=== PATIENT | female | born 1945 | race Caucasian/White ===

== ENCOUNTER 2020-04-24 09:02 | Outpatient (REF) | payer MEDICARE, OTHER, SELFPAY ==
[2020-04-24 11:13] LABS: Hematocrit 41.3 % (37-47); Hemoglobin 13.7 g/dl (12.0-16.0); Mean Corpuscular HGB Conc 33.2 g/dl (31.0-35.0); Mean Corpuscular Hemoglobin 31.8 pg (27.0-33.0); Mean Corpuscular Volume 95.8 fL (80-98); Platelet Count 221 X10*3/uL (160-400); Red Blood Count 4.31 X10*6/uL (4.20-5.50); Red Cell Distribution Width 12.2 % (11.0-16.0); White Blood Count 5.3 X10*3/uL (4.8-10.8)
[2020-04-24 11:50] LABS: Alanine Aminotransferase 23 U/L (0-31); Albumin Level 4.6 g/dL (3.5-5.0); Alkaline Phosphatase 94 U/L (39-117); Anion Gap 12 (12-20); Aspartate Amino Transferase 26 U/L (5-31); Bilirubin Total 0.6 mg/dL (0.0-1.0); Blood Urea Nitrogen 17 mg/dL (9-16); Calcium 9.1 mg/dL (8.4-10.2); Carbon Dioxide 28 mmol/L (22-29); Chloride 102 mmol/L (96-108); Cholesterol 208 mg/dL; Estimated Glomerular Filt Rate > 60; Glucose Fasting 92 mg/dL (60-99); HDL Cholesterol 86 mg/dL; LDL Cholesterol Calculated 111 mg/dl; Potassium 4.3 mmol/l (3.3-5.1); Sodium 138 mmol/L (135-145); Total Protein 6.9 g/dL (6.5-8.0); Triglycerides 59 mg/dL
[2020-04-24 11:52] LABS: Thyroid Stimulating Hormone 0.98 uIU/mL (0.32-4.0)
== END 2020-04-24 09:03 | disposition home or self-care (01) ==
LOC: HO.HMGCLDS 09:02
PROVIDERS: PCP Internal Medicine; Visit Provider Internal Medicine
DX: Z00.00 Encounter for general adult medical examination without abnormal findings (principal); Z13.220 Encounter for screening for lipoid disorders; Z13.29 Encounter for screening for other suspected endocrine disorder
CPT/HCPCS: 36415; 80053; 80061; 84443; 85027

== ENCOUNTER 2020-06-17 12:32 | Outpatient (REF) | payer MEDICARE, OTHER, SELFPAY ==
--- NOTE | ~2020-06-17 | XR_ITS ---
EXAMINATION: XR CHEST CLINICAL INFORMATION: Z00.00 - Encounter for general adult medical examination COMPARISON: None TECHNIQUE: 2 views of the chest were obtained. FINDINGS: There is mild upper zone hyperinflation with prominent retrosternal airspace in AP diameter on lateral view. The lungs are clear. There is no airspace consolidation or groundglass opacity. No pleural reaction or effusion. The costophrenic sulci are well-defined. The heart is normal in size. The hilar and mediastinal contours are normal. There are multilevel degenerative changes and mild curvature thoracic spine. XR/XR chest 2V IMPRESSION: 1. Hyperinflation. Lungs clear. Heart size normal. 2. Multilevel degenerative changes thoracic spine.
== END 2020-06-17 12:33 | disposition home or self-care (01) ==
LOC: HO.HMGCX 12:32
PROVIDERS: PCP Internal Medicine; Visit Provider Internal Medicine
DX: R05 Cough (principal)
CPT/HCPCS: 71046

== ENCOUNTER 2020-06-23 09:15 | Outpatient (REF) | payer MEDICARE, OTHER, SELFPAY ==
--- NOTE | ~2020-06-23 | MM_ITS ---
EXAMINATION: BONE DENSITOMETRY CLINICAL INDICATION: Screening for osteoporosis. COMPARISON: Previous BD dated 07/05/2018 and baseline BD dated 05/20/2016. TECHNIQUE: Using a [employer] DXA System (software version: 13.1) manufactured by [employer], dual-energy x-ray absorptiometry was performed of the lumbar spine and left hip. The images are of good technical quality. Summary results are attached. FINDINGS: AP SPINE L1-L2 (excluding L3 and L4): The data of L1-L4 has been changed to exclude the L3 and L4 vertebral bodies, because at these levels may cause overestimation of lumbar spine density. Current: BMD 1.040 g/cm2, Z-score 1.2, T-score -1.0, normal, 2.7% decrease from previous, 4.5% decrease from baseline (<5% change is not significant). Prior: BMD 1.069 g/cm2. Baseline: BMD 1.089 g/cm2. LEFT FEMUR, NECK: Current: BMD 0.792 g/cm2, Z-score 0.5, T-score -1.8, osteopenia. Prior: BMD 0.839 g/cm2. Baseline: BMD 0.861 g/cm2. LEFT FEMUR, TOTAL: Current: BMD 0.886 g/cm2, Z-score 1.1, T-score -1.0, normal, 4.3% decrease from previous, 7.3% decrease from baseline (<5% change is not significant). Prior: BMD 0.926 g/cm2. Baseline: BMD 0.956 g/cm2. IDENTIFIED RISK FACTORS: Height loss, low calcium intake, menopause. HISTORY OF FRACTURE: None listed. MEDICATIONS: Calcium supplements or multivitamin, vitamin D. MM/XR DEXA axial skeleton IMPRESSION: 1. DIAGNOSIS: Osteopenia based on the lowest T-score value of -1.8 in the femoral neck applying World Health Organization criteria. 2. 10-YEAR FRACTURE RISK PREDICTION, FRAX: Major osteoporotic fracture (clinical spine, forearm, hip or shoulder) 11.1%. Hip fracture 2.8%. 3. Treatment Recommendations: NOF guidelines recommend consideration for treatment in postmenopausal women and men age 50 and older presenting with the following: -A hip or vertebral (clinical or morphometric) fracture. -T-score less than or equal to -2.5 at the femoral neck or spine after appropriate evaluation to exclude secondary causes. -Low bone mass at the hip or spine and a 10-year fracture probability by FRAX of greater than or equal to 3% for hip fracture or greater than or equal to 20% for major osteoporotic fracture based on the [place] adapted WHO algorithm. 4. Other Recommendations: All treatment decisions require clinical judgment and consideration of individual patient factors, including patient preferences, comorbidities, previous drug use, risk factors not captured in the FRAX model (e.g. frailty, falls, vitamin D deficiency, increased bone turnover, interval significant decline in bone density) and possible under or overestimation of fracture risk by FRAX. Additional medical evaluation for secondary cause of low bone mineral density may be appropriate. FUTURE SCAN RECOMMENDATION: People with diagnosed cases of osteoporosis or at high risk for fracture should have regular bone mineral density tests. For patients eligible for Medicare, routine testing is allowed once every 2 years. The testing frequency can be increased to one year for patients who have rapidly progressing disease, those who are receiving or discontinuing medical therapy to restore bone mass, or have additional risk factors.
== END 2020-06-23 09:16 | disposition home or self-care (01) ==
LOC: HO.MAMMO 09:15
PROVIDERS: PCP Internal Medicine; Visit Provider Internal Medicine
DX: Z13.820 Encounter for screening for osteoporosis (principal); E58 Dietary calcium deficiency; Z78.0 Asymptomatic menopausal state
CPT/HCPCS: 77080

== ENCOUNTER 2021-06-21 09:04 | Outpatient (REF) | payer MEDICARE, OTHER, SELFPAY ==
--- NOTE | ~2021-06-21 | XR_ITS ---
EXAMINATION: XR LUMBOSACRAL SPINE CLINICAL INFORMATION: Pain. COMPARISON: Previous lumbar spine MRI from 2017. TECHNIQUE: Three views of the lumbosacral spine. FINDINGS: There is 1.5 cm anterior subluxation of L4 with respect L5. There is a 5 mm anterior subluxation of L5 with respect to S1. This is similar to previous MRI. There is mild curvature of the lower lumbosacral spine to the right. Bone alignment is otherwise normal. There is degenerative disc disease at L4-L5 and L5-S1. There is lower lumbar spine facet arthritis. There is a probable old L4 pars defect. XR/XR lumbar spine 2-3V IMPRESSION: Degenerative changes of the lower lumbar spine and L4-L5 spondylolysis and spondylolisthesis similar to previous MRI.
--- NOTE | ~2021-06-21 | XR_ITS ---
EXAMINATION: XR BILATERAL HIPS WITH AP PELVIS CLINICAL INFORMATION: Right hip pain COMPARISON: Previous x-ray April 2016 TECHNIQUE: AP view of the pelvis and 2 views of each hip were obtained. FINDINGS: There is severe right hip arthritis with joint space narrowing, osteophyte formation and subchondral cyst formation. There is mild left hip arthritis with mild joint space narrowing and osteophyte formation. No fracture or dislocation is seen. The bones of the pelvis are unremarkable. Soft tissues are unremarkable. XR/XR hip BI w PEL1V IMPRESSION: Bilateral hip arthritis, severe on the right.
[2021-06-21 11:41] LABS: Hematocrit 40.9 % (37.0-47.0); Hemoglobin 13.3 g/dl (12.0-16.0); Mean Corpuscular HGB Conc 32.5 g/dl (31.0-35.0); Mean Corpuscular Hemoglobin 30.4 pg (27.0-33.0); Mean Corpuscular Volume 93.4 fL (80.0-98.0); Mean Platelet Volume 10.9 fL (9.4-12.3); Platelet Count 231 X10*3/uL (160-400); Red Blood Count 4.38 X10*6/uL (4.20-5.50); Red Cell Distribution Width 12.1 % (11.0-16.0); White Blood Count 4.9 X10*3/uL (4.8-10.8)
[2021-06-21 12:08] LABS: Alanine Aminotransferase 24 U/L (0-31); Albumin Level 4.3 g/dL (3.5-5.0); Alkaline Phosphatase 95 U/L (39-117); Anion Gap 10 (12-20); Aspartate Amino Transferase 27 U/L (5-31); Bilirubin Total 0.8 mg/dL (0.0-1.0); Blood Urea Nitrogen 17 mg/dL (9-16); Calcium 9.5 mg/dL (8.4-10.2); Carbon Dioxide 28 mmol/L (22-29); Chloride 104 mmol/L (96-108); Cholesterol 199 mg/dL; Estimated Glomerular Filt Rate > 60; Glucose Fasting 87 mg/dL (60-99); HDL Cholesterol 78 mg/dL; LDL Cholesterol Calculated 109 mg/dl; Potassium 4.2 mmol/L (3.3-5.1); Sodium 138 mmol/L (135-145); Total Protein 6.7 g/dL (6.5-8.0); Triglycerides 60 mg/dL
[2021-06-21 12:12] LABS: TSH reflex Free T4 0.82 uIU/mL (0.32-4.0); Vitamin D 25-OH Total 29.4 ng/mL (>30)
== END 2021-06-21 09:05 | disposition home or self-care (01) ==
LOC: HO.HMGCX 09:04
PROVIDERS: PCP Internal Medicine; Visit Provider Internal Medicine
DX: Z00.00 Encounter for general adult medical examination without abnormal findings (principal); M25.551 Pain in right hip; M54.30 Sciatica, unspecified side; R93.3 Abnormal findings on diagnostic imaging of other parts of digestive tract; M85.80 Other specified disorders of bone density and structure, unspecified site
CPT/HCPCS: 36415; 72100; 73521; 80053; 80061; 82306; 84443; 85027

== ENCOUNTER 2021-08-03 14:00 | Outpatient (RCR) | payer MEDICARE, OTHER, SELFPAY ==
--- NOTE | 2021-07-06 14:41 | MHC.PT.EP ---
[facility] [place] Office [place] Office [place] Office [address] [phone] F: [phone] F: [phone] F: [phone] F: [phone] Physical Therapy Plan of Care Date of Evaluation: Date of Surgery: Diagnosis: R hip pain Assessment: Patient is a 75 year old R handed female who presents with s/s consistent with R hip pain. She likes to stay active and is in a hiking group. Patient past medical history is non-contributory. Current impairments include pain, ROM, strength, activity tolerance and functional mobility. Functional limitations include decreased ability to stand, transfer, hike, walk longer distances. Patient is motivated with good rehab potential. Skilled PT will address impairments and functional limitations in order to achieve goals. Frequency and Duration: The patient will be seen 1x/week for 6 weeks Short Term Goals: I with HEP - 3 weeks ER 32 AROM - 3 weeks Able to walk pain free with symmetrical gait - 3 weeks [employer] Goals: Pain free hiking > 5 hours - 6 weeks Pain free transfers - 6 weeks Hip strength 4+/5 grossly - 6 weeks ROM symmetrical - 6 weeks Treatment Plan: Modalities to reduce pain, spasms and effusion. Manual therapy to restore motion and function. Therapeutic exercise to improve strength and flexibility. Neuromuscular re-education for posture and balance. Therapeutic activities to return to functional activities of daily living. Electronically signed by: Arpan Hendricks, PT Please sign and return to therapist. Thank you for your referral.
--- NOTE | 2022-01-06 09:37 | MHC.PT.DC ---
[facility] [place] Office [place] Office [address] Barron Baron [address] [phone] F: [phone] F: [phone] F: [phone] F: [phone] Physical Therapy Discharge Report Diagnosis: R hip pain Date of Surgery: Date of Evaluation: 07/06/21 Date of Discharge: 08/19/21 Treatments to Date: 5 Cancellations to Date: No Shows to Date: Discharge Status: Improved Function Independent with HEP Discharge Summary: 08/03/21: pt progressed well over the course of PT on impairments and understanding of importance of HEP in order to slow progression of hip pathology. we are in agreement to d/c to HEP at this time. 07/28/21: pt progressed with LE strength. issued updated HEP. we will continue 1 more visit then likely d/c to HEP as pt is I with program at this time. 07/20/21: pt progressing well overall. able to perform 5 mile hike which was about 3 hours. we will continue to assess progress. some pain with standing hip abd with RTB. 07/13/21: pt progressed with skilled PT for hip strength and ROM/flex. no adverse reactions. HEP updated. Patient is a 75 year old R handed female who presents with s/s consistent with R hip pain. She likes to stay active and is in a hiking group. Patient past medical history is non-contributory. Current impairments include pain, ROM, strength, activity tolerance and functional mobility. Functional limitations include decreased ability to stand, transfer, hike, walk longer distances. Patient is motivated with good rehab potential. Skilled PT will address impairments and functional limitations in order to achieve goals. Electronically signed by: Arpan Hendricks, PT Please sign and return to therapist. Thank you for your referral.
== END 2022-01-06 09:37 | disposition home or self-care (01) ==
LOC: HO.PTCHIC 14:00
PROVIDERS: PCP Internal Medicine; Visit Provider Internal Medicine
DX: M25.551 Pain in right hip (principal)
CPT/HCPCS: 97110; 97140; 97161

== ENCOUNTER 2022-06-29 08:34 | Outpatient (REF) | payer MEDICARE, OTHER, SELFPAY ==
[2022-06-29 11:22] LABS: MANUAL DIFF FLAG NO
[2022-06-29 11:39] LABS: Estimated Average Glucose 114 mg/dL; Hemoglobin A1c % 5.6 %
[2022-06-29 11:45] LABS: Basophils Percent Auto 0.9 % (0-2); Eosinophils Absolute Auto 0.1 X10*3/uL (0.0-0.4); Hematocrit 42.2 % (37.0-47.0); Hemoglobin 13.8 g/dl (12.0-16.0); Imm Gran Abs Auto 0.01 X10*3/uL (0.00-0.03); Imm Gran Pct Auto 0.2 % (0.0-0.4); Lymphocytes Absolute Auto 1.5 X10*3/uL (1.2-4.9); Lymphocytes Percent Auto 32.5 % (20-40); Mean Corpuscular HGB Conc 32.7 g/dl (31.0-35.0); Mean Corpuscular Hemoglobin 29.8 pg (27.0-33.0); Mean Corpuscular Volume 91.1 fL (80.0-98.0); Monocytes Absolute Auto 0.4 X10*3/uL (0.1-1.2); Monocytes Percent Auto 9.6 % (2-11); Neutrophils Absolute Auto 2.5 x10*3/uL (2.0-8.3); Neutrophils Percent Auto 54.8 % (45-73); Platelet Count 199 X10*3/uL (160-400); Red Blood Count 4.63 X10*6/uL (4.20-5.50); Red Cell Distribution Width 12.1 % (11.0-16.0); White Blood Count 4.5 X10*3/uL (4.8-10.8)
[2022-06-29 12:01] LABS: Alanine Aminotransferase 21 U/L (0-31); Albumin Level 4.3 g/dL (3.5-5.0); Alkaline Phosphatase 99 U/L (39-117); Anion Gap 11 (12-20); Aspartate Amino Transferase 26 U/L (5-31); Blood Urea Nitrogen 17 mg/dL (9-16); Calcium 9.2 mg/dL (8.4-10.2); Carbon Dioxide 27 mmol/L (22-29); Chloride 106 mmol/L (96-108); Cholesterol 221 mg/dL; Estimated Glomerular Filt Rate > 60; Glucose Fasting 83 mg/dL (60-99); HDL Cholesterol 80 mg/dL; LDL Cholesterol Calculated 126 mg/dl; Potassium 4.2 mmol/L (3.3-5.1); Sodium 140 mmol/L (135-145); Total Protein 6.5 g/dL (6.5-8.0); Triglycerides 76 mg/dL
[2022-06-29 12:07] LABS: TSH reflex Free T4 0.95 uIU/mL (0.32-4.0); Vitamin D 25-OH Total 47.1 ng/mL (>30)
== END 2022-06-29 08:35 | disposition home or self-care (01) ==
LOC: HO.HMGCLDS 08:34
PROVIDERS: PCP Internal Medicine; Visit Provider Internal Medicine
DX: Z00.00 Encounter for general adult medical examination without abnormal findings (principal); H26.9 Unspecified cataract; E55.9 Vitamin D deficiency, unspecified
CPT/HCPCS: 36415; 80053; 80061; 82306; 83036; 84443; 85025

== ENCOUNTER 2022-11-30 14:15 | Outpatient (AMB) | payer MEDICARE, OTHER, SELFPAY ==
[2022-11-30 14:20] VITALS: BP 104/66; PULSE 77; O2SAT 98; BMI 20.7
--- NOTE | 2022-11-30 14:20 | A.OFFPC_ITS ---
Vital Signs 11/30/22 14:20 Height 5 ft 2 in Weight 113 lb BMI 20.7 BP 104/66 Blood Pressure Location Lt brachial Position Sitting Pulse 77 Pulse Source Pulse Oximeter Pulse Oximetry (%) 98 Oxygen Delivery Method Room Air Intake Visit Reasons: hip and back pain Intake Note: Pt is here today for a sick visit. Pt c/o L hip pain and L lower back pain. Allergies penicillin V Allergy (Intermediate, Verified 11/30/22 14:22) Hives Penicillins Allergy (Intermediate, Verified 11/30/22 14:22) Hives Tobacco use date assessed: 11/30/22 Dental Screening Dental Screen Date: 11/30/22 Did you have a dental visit in the last 12 months?: Yes Did you have a dental problem in the last 6 months where you did not have access to dental care?: No Was dental information given to patient?: Patient has dentist HPI hip and back pain HPI Details Pt c/o left-sided lower back and L hip pain worse when walking but also at night on and off for 3 months. Patient has been taking Tylenol almost on daily basis.. She has similar symptoms before was diagnosed with advanced o steoarthritis of the right hip. [facility] Medical History (Updated 11/30/22 @ 14:45 by Josette Falk MD) Abnormal colonoscopy Annual physical exam Cough GERD (gastroesophageal reflux disease) Mammogram normal Osteopenia Right hip pain Sciatica Surgical History No pertinent past surgical history Family History Father Type 2 diabetes mellitus Mother Hypertension Maternal Grandmother Bone cancer Social History Housing: House Alcohol intake: current Alcohol intake frequency: a few times a week Patient Tobacco Use Status: Former Tobacco user Quit Date: 1977 e-Cigarette/Vaping Use: Never Used Current occupational status: retired Cognitive needs: No Hearing needs: No Vision needs: Yes Questionnaire Thrive Questionnaire Date Thrive assessed: 06/24/22 APARNA-7 AMB Questionnaire APARNA-7 Date APARNA - 7 assessed: 06/24/22 Source: Developed by Drs. Ba Womack, Alize Gottlieb, Faizan Mathews and colleagues, with an educational amanda from [employer]. Review of Systems Const All systems reviewed & are unremarkable except as noted in HPI and below Reports no additional complaints Eyes Reports no additional complaints ENT Reports no additional complaints Card Reports no additional complaints GI Reports no additional complaints Reports no additional complaints Physical exam (Primary Care) Vital Signs: Last Vital Signs Pulse 77 11/30/22 14:20 BP 104/66 11/30/22 14:20 Pulse Ox 98 11/30/22 14:20 Oxygen Delivery Method Room Air 11/30/22 14:20 BMI result Body Mass Index 20.7 Tobacco/Smoking Status: Tobacco use Status Tobacco use date assessed 11/30/22 11/30/22 14:24 Patient Tobacco Use Status Former Tobacco user 11/30/22 14:24 e-Cigarette/Vaping Use Never Used 11/30/22 14:24 Thrive Assessment: Date of Thrive Assessment Date Thrive assessed 06/24/22 11/30/22 14:24 Const General: no acute distress Eyes General: appearance normal, both eyes and all related structures Resp Effort & Inspection: normal respiratory effort Auscultation: clear to auscultation bilaterally Cardio Rhythm: regular rhythm Heart sounds: S1 normal heart sound present and S2 normal heart sound present GI Inspection: Yes normal to inspection Extrem Other: Decreased range of motion of the left hip, straight leg rising 90 degrees bilaterally General: Yes no clubbing, cyanosis or edema Assessment and Plan Assessment & Plan (1) Right hip pain: Comment: s/p replacement 04/07 Code(s): M25.551 - Pain in right hip (2) Hip pain, left: Code(s): M25.552 - Pain in left hip Plan: Check x-ray of left hip. Orders: Orders 2 XR hip LT min 2V Today M25.552 - Pain in left hip Coding Level of Care Code Est Pt Level 3 (69676) Diagnoses Right hip pain M25.551 Hip pain, left M25.552
== END 2022-11-30 14:52 | disposition home or self-care (01) ==
PROVIDERS: PCP Internal Medicine; Visit Provider Internal Medicine
DX: M25.551 Pain in right hip (principal); M25.552 Pain in left hip
CPT/HCPCS: 99213

== ENCOUNTER 2022-11-30 14:47 | Outpatient (REF) | payer MEDICARE, OTHER, SELFPAY ==
--- NOTE | ~2022-11-30 | XR_ITS ---
EXAMINATION: XR HIP, LEFT CLINICAL INFORMATION: Pain. COMPARISON: Radiograph pelvis 06/21/2021. TECHNIQUE: Two views of the left hip. FINDINGS: No acute fractures or subluxation. Moderate joint space narrowing and subcortical sclerosis with small marginal osteophytes in the left hip, slightly increased compared to 06/21/2021. No significant soft tissue abnormality. XR/XR hip LT min 2V IMPRESSION: 1. No acute fractures or subluxation. 2. Moderate osteoarthritis of the left hip, slightly increased compared to 06/21/2021.
== END 2022-11-30 14:48 | disposition home or self-care (01) ==
LOC: HO.HMGCX 14:47
PROVIDERS: PCP Internal Medicine; Visit Provider Internal Medicine
DX: M25.552 Pain in left hip (principal)
CPT/HCPCS: 73502

== ENCOUNTER 2024-04-01 12:58 | Outpatient (REF) | payer MEDICARE, OTHER, SELFPAY | END 2024-04-01 12:59 | disposition home or self-care (01) | LOC: HO.HMGCX 12:58 | PROVIDERS: PCP Internal Medicine; Visit Provider Internal Medicine | DX: M25.552 Pain in left hip (principal) | CPT/HCPCS: 73502 ==

== ENCOUNTER 2024-05-09 08:46 | Outpatient (REF) | payer MEDICARE, OTHER, SELFPAY ==
[2024-05-09 10:13] LABS: MANUAL DIFF FLAG NO
[2024-05-09 10:27] LABS: Basophils Percent Auto 0.6 % (0-2); Eosinophils Absolute Auto 0.2 X10*3/uL (0.0-0.4); Eosinophils Percent Auto 3.8 % (0-4); Hematocrit 41.4 % (37.0-47.0); Hemoglobin 13.9 g/dl (12.0-16.0); Lymphocytes Absolute Auto 1.8 X10*3/uL (1.2-4.9); Mean Corpuscular HGB Conc 33.6 g/dl (31.0-35.0); Mean Corpuscular Hemoglobin 31.2 pg (27.0-33.0); Mean Corpuscular Volume 92.8 fL (80.0-98.0); Mean Platelet Volume 10.3 fL (9.4-12.3); Monocytes Absolute Auto 0.6 X10*3/uL (0.1-1.2); Monocytes Percent Auto 11.5 % (2-11); Neutrophils Absolute Auto 2.3 x10*3/uL (2.0-8.3); Neutrophils Percent Auto 47.1 % (45-73); Platelet Count 221 X10*3/uL (160-400); Red Blood Count 4.46 X10*6/uL (4.20-5.50); White Blood Count 4.8 X10*3/uL (4.8-10.8)
[2024-05-09 10:56] LABS: Alanine Aminotransferase 33 U/L (0-31); Albumin Level 4.2 g/dL (3.5-5.0); Alkaline Phosphatase 93 U/L (39-117); Anion Gap 10 (12-20); Aspartate Amino Transferase 35 U/L (5-31); Bilirubin Total 0.8 mg/dL (0.0-1.0); Blood Urea Nitrogen 16 mg/dL (9-16); Calcium 9.6 mg/dL (8.4-10.2); Carbon Dioxide 26 mmol/L (22-29); Chloride 108 mmol/L (96-108); Cholesterol 198 mg/dL (<200); Estimated Glomerular Filt Rate > 60; Glucose Fasting 89 mg/dL (60-99); HDL Cholesterol 75 mg/dL (>40); LDL Cholesterol Calculated 110 mg/dL (<100); Potassium 4.1 mmol/L (3.3-5.1); Sodium 140 mmol/L (135-145); Triglycerides 65 mg/dL (<150); Vitamin D 25-OH Total 55.7 ng/mL (>30)
== END 2024-05-09 08:47 | disposition home or self-care (01) ==
LOC: HO.HMGCLDS 08:46
PROVIDERS: PCP Internal Medicine; Visit Provider Internal Medicine
DX: Z00.00 Encounter for general adult medical examination without abnormal findings (principal); E55.9 Vitamin D deficiency, unspecified
CPT/HCPCS: 36415; 80053; 80061; 82306; 85025

== ENCOUNTER 2024-05-14 11:50 | Outpatient (AMB) | payer MEDICARE, OTHER, SELFPAY ==
[2024-05-14 11:55] VITALS: BP 110/76; PULSE 82; TEMP 36.4; O2SAT 99; BMI 20.1
--- NOTE | 2024-05-14 11:55 | A.OFFPC_ITS ---
Vital Signs 05/14/24 11:55 Height 5 ft 2 in Weight 110 lb BMI 20.1 BP 110/76 Blood Pressure Location Lt brachial Position Sitting Pulse 82 Pulse Source Pulse Oximeter Temp 97.6 F Temp Source Oral Pulse Oximetry (%) 99 Oxygen Delivery Method Room Air Intake Visit Reasons: Annual PE Intake Note: Pt is here today for PE. Allergies penicillin V Allergy (Intermediate, Verified 05/14/24 11:56) Hives Penicillins Allergy (Intermediate, Verified 05/14/24 11:56) Hives Medication List - Last Reconciled 05/14/24 by Josette Falk MD cholecalciferol (vitamin D3) 25 mcg PO DAILY estradiol 0.01%(0.1mg/gram) (Estrace) 1 g vaginal 2XW valacyclovir (Valtrex) 2,000 mg (2 x 1 gram) PO Q12H vitamins A,C,G-pxew-mxoegc (Ocuvite Preservision) PO Tobacco use date assessed: 05/14/24 Fall risk assessment: No Falls in past year Last assessed Fall Risk: 05/14/24 Dental Screening Dental Screen Date: 05/14/24 Did you have a dental visit in the last 12 months?: Yes Did you have a dental problem in the last 6 months where you did not have access to dental care?: No Was dental information given to patient?: Patient has dentist HPI Annual PE HPI Details Patient presents for physical. She complains of worsening pain in the left hip after prolonged activity like hiking [facility] Medical History Osteopenia Sciatica Right hip pain Mammogram normal Abnormal colonoscopy Cough GERD (gastroesophageal reflux disease) Annual physical exam Surgical History No pertinent past surgical history Family History Father Type 2 diabetes mellitus Mother Hypertension Maternal Grandmother Bone cancer Social History Housing: House Alcohol intake: current Alcohol intake frequency: a few times a week Patient Tobacco Use Status: Former Tobacco user e-Cigarette/Vaping Use: Never Used service: No Current occupational status: retired Cognitive needs: No Hearing needs: No Vision needs: Yes Questionnaire PHQ-9 Over the last 2 weeks, how often have you been bothered by any of the following problems? 1. Little interest or pleasure in doing things: not at all 2. Feeling down, depressed, or hopeless: not at all 3. Trouble falling or staying asleep, or sleeping too much: several days 4. Feeling tired or having little energy: not at all 5. Poor appetite or overeating: not at all 6. Feeling bad about yourself - or that you are a failure or have let yourself or your family down: not at all 7. Trouble concentrating on things, such as reading the newspaper or watching television: not at all 8. Moving or speaking so slowly that other people could have noticed. Or the opposite - being so fidgety or restless that you have been moving around a lot more than usual: not at all 9. Thoughts that you would be better off or of hurting yourself in some way: not at all Total score: 1 Depression Screening Interpretation: Negative Depression Screening Done: Yes 36695 - PHQ-9 Billing: Yes Source: Developed by Drs. Ba Womack, Alize Gottlieb, Faizan Mathews and colleagues, with an educational amanda from [employer]. Thrive Questionnaire Date Thrive assessed: 06/24/22 I am a: Patient What is your living situation today?: I have a steady place to live Within the past 12 months, did the food you bought not last and you didn't have the money to get more?: Never true Within the past 12 months, did you worry whether your food would run out before you got money to buy more?: Never true Do you have trouble paying for medicines?: No Do you have trouble getting transportation to medical appointments?: No Do you have trouble paying your heating and electricity bill?: No Do you have trouble taking care of your child, family member or friend?: No Do you have trouble with day-to-day activities such as bathing, preparing meals, shopping, managing finances, etc.?: No Are you currently unemployed and looking for a job?: No Are you interested in more education?: No Please select the resources that you would like help with: None Currently or been in a relationship where the following occur: No concerns reported THRIVE Score: 0 AUDIT C Alcohol Use Questionnaire (AUDIT-C) 1. How often do you have a drink containing alcohol?: 2-3 times a week 2. How many drinks containing alcohol do you have on a typical day when you are drinking?: 1 or 2 3. How often do you have six or more drinks on one occasion?: Never Total Score: 3 APARNA-7 AMB Questionnaire APARNA-7 Date APARNA - 7 assessed: 06/24/22 Feeling nervous, anxious, or on edge: 0 = Not at all Not being able to stop or control worryin = Not at all Worrying too much about different things: 0 = Not at all Trouble relaxin = Not at all Being so restless that it is hard to sit still: 0 = Not at all Becoming easily annoyed or irritable: 0 = Not at all Feeling afraid as if something awful might happen: 0 = Not at all Total APARNA-7 score (0-4 normal; 5-9 mild; 10-14 moderate; 15-21 severe): 0 Source: Developed by Drs. Ba Womack, Alize Gottlieb, Faizan Mathews and colleagues, with an educational amanda from [employer]. Review of Systems Const All systems reviewed & are unremarkable except as noted in HPI and below Eyes Reports no additional complaints ENT Reports no additional complaints Card Reports no additional complaints Resp Reports no additional complaints GI Reports no additional complaints Reports no additional complaints Physical exam (Primary Care) Vital Signs: Last Vital Signs Temp 97.6 F 05/14/24 11:55 Pulse 82 05/14/24 11:55 BP 110/76 05/14/24 11:55 Pulse Ox 99 05/14/24 11:55 Oxygen Delivery Method Room Air 05/14/24 11:55 BMI result Body Mass Index 20.1 Tobacco/Smoking Status: Tobacco use Status Tobacco use date assessed 05/14/24 05/14/24 12:07 Patient Tobacco Use Status Former Tobacco user 05/14/24 11:56 e-Cigarette/Vaping Use Never Used 05/14/24 11:56 PHQ-9: PHQ-9 Score PHQ-9: Total score 1 05/14/24 11:56 Depression Screening Interpretation: Negative Thrive Assessment: Date of Thrive Assessment Date Thrive assessed 06/24/22 05/14/24 11:56 Currently or been in a relationship where the following occur: No concerns re ported Const General: no acute distress HENMT Head: Yes normal to inspection Ears: hearing grossly normal bilaterally Face and sinus: Yes normal facial exam Throat: Yes posterior oropharynx normal Eyes General: appearance normal, both eyes and all related structures Neck Neck: Yes no lymphadenopathy and Yes supple Resp Effort & Inspection: normal respiratory effort Auscultation: clear to auscultation bilaterally Cardio Rhythm: regular rhythm Heart sounds: S1 normal heart sound present and S2 normal heart sound present GI Inspection: Yes normal to inspection Palpation (GI): Soft to palpation Percussion: Yes normal to percussion Auscultation: normal bowel sounds Coding Level of Care Code Est Pt Prev Care >65y(67816) Diagnoses Postmenopausal Z78.0 Abnormal colonoscopy R93.3 Annual physical exam Z00.00 Additional Codes PHQ-9 - 84164 - PHQ-9 Billing: Yes ([id number]) Assessment & Plan Assessment & Plan (1) Postmenopausal: Code(s): Z78.0 - Asymptomatic menopausal state Category: Medical Plan: check DEXA (2) Abnormal colonoscopy: Comment: 1 polyp 2019, recheck 5 years Code(s): R93.3 - Abnormal findings on diagnostic imaging of other parts of digestive tract Category: Medical Plan: REFERRED TO GI FOR REPEAT COLONOSCOPY (3) Annual physical exam: Code(s): Z00.00 - Encounter for general adult medical examination without abnormal findings Category: Medical Plan: Well-balanced diet regular physical activity discussed with the patient. She will call orthopedic surgeon to discuss left hip advanced osteoarthritis Orders: Orders XR DEXA axial skeleton Today Z78.0 - Asymptomatic menopausal state Comprehensive [place]. Panel Fast 1 Year E55.9 - Vitamin D deficiency, unspecified, Z00.00 - Encounter for general adult medical examination without abnormal findings, Z78.0 - Asymptomatic menopausal state Complete Blood Count Auto Diff 1 Year E55.9 - Vitamin D deficiency, unspecified, Z00.00 - Encounter for general adult medical examination without abnormal findings, Z78.0 - Asymptomatic menopausal state UA w Microscopic 1 Year E55.9 - Vitamin D deficiency, unspecified, Z00.00 - Encounter for general adult medical examination without abnormal findings, Z78.0 - Asymptomatic menopausal state Lipid Panel 1 Year E55.9 - Vitamin D deficiency, unspecified, Z00.00 - Encounter for general adult medical examination without abnormal findings, Z78.0 - Asymptomatic menopausal state Vitamin D 25-OH Total 1 Year E55.9 - Vitamin D deficiency, unspecified, Z00.00 - Encounter for general adult medical examination without abnormal findings, Z78.0 - Asymptomatic menopausal state Referrals Gastroenterology Referral R93.3 - Abnormal findings on diagnostic imaging of other parts of digestive tract Medications: Refilled valacyclovir (Valtrex) 2,000 mg (2 x 1 gram) PO Q12H 4 tabs 4RF estradiol 0.01%(0.1mg/gram) (Estrace) 1 g vaginal 2XW 42.5 grams 4RF
--- OUTSIDE RECORDS SUMMARY | 2024-05-14 12:59 | XMS_ITS | Clinical Summary ---
Author Organization [address] [place] [address] [place] [phone] Phone Care Team Providers Care French Edge Operator Name Role Phone Physician, No Pcp Primary Care Provider Unavaila ble Allergies Active Allergy Reactions Criticality Noted Date Comments Penicillins 02/25/2024 Encounters Date Type Department Care Team Description 03/02/2024 Telephone Walk-In [address] [phone] [place], AVIATION ELECTRICAL TECHNICIAN Results 02/27/2024 4:30 PM EST Clinic Lab Collection Walk-In [address] [phone] Contamination of urine culture (Primary Dx) 02/26/2024 Telephone Walk-In [address] [address] Physician, No Pcp Results 02/25/2024 9:15 AM EST Office Visit Walk-[address] [address] [place], AVIATION ELECTRICAL TECHNICIAN Lower urinary tract symptoms (Primary Dx) from Last 3 Months Social History Tobacco Use Types Packs/Day Years Used Date Smoking Tobacco: Never Assessed Sex and Gender Information Value Date Recorded Sex Assigned at Not on file Gender Identity Not on file Sexual Orientation Not on file Job Start Date Occupation Industry Not on file Not on file Not on file Obstetrics History Last Filed Vital Signs Vital Sign Reading Time Taken Comments Blood Pressure 123/73 02/25/2024 9:36 AM EST Pulse 94 02/25/2024 9:36 AM EST Temperature 36.1 ??C (97 ??F) 02/25/2024 9:36 AM EST Respiratory Rate - - Oxygen Saturation 98% 02/25/2024 9:36 AM EST Inhaled Oxygen Concentration - - Weight - - Height - - Body Mass Index - - Plan of Treatment Health Maintenance Due Date Last Done Comments IPV Vaccines (2 of 3 - Adult catch-up series) 08/18/1999 07/21/1999 Pneumococcal Vaccine: 65+ Years (2 of 2 - PPSV23 or PCV20) 02/06/2018 02/06/2017 DTaP,Tdap,and Td Vaccines (3 - Td or Tdap) 09/17/2018 09/17/2008, 07/21/1999 RSV Immunization Patients 60+ Years Old (1 - 1-dose 75+ series) 09/02/2019 Depression Screening 05/12/2023 Falls Risk Assessment 05/12/2023 Hepatitis C Screening 05/12/2023 Medicare Annual Wellness Visit 05/12/2023 Osteoporosis Screening (Bone Density Screening) 05/12/2023 Social Influencers of Health Screening 05/12/2023 COVID-19 Vaccine ( season) 2023 03/22/2023, 08/19/2022, 01/07/2022, Additional history exists Influenza Vaccine (#1) 2023 , 01/19/2022, 02/20/2021, Additional history exists Hepatitis A Vaccines Aged Out 02/07/2000, 07/21/19 00 No longer eligible based on patient's age to complete this topic Hepatitis B Vaccines Completed 09/07/2006, 03/15/2006, 02/13/2006 Zoster Vaccines Completed 01/26/2024, 10/17, 11/17/2008 HIB Vaccines Aged Out No longer eligi ble based on patient's age to complete this topic HPV Vaccines Aged Out No longer eligi ble based on patient's age to complete this topic MMR Vaccines Aged Out No longer eligi ble based on patient's age to complete this topic Meningococcal ACWY Vaccine Aged Out N o longer eligible based on patient's age to complete this topic RSV Immunization Patients Under 20 months Aged Out No longer eligible based on patient's age to complete this topic Varicella Vaccines Aged Out No longer eligible based on patient's age to complete this topic Procedures Procedure Name Priority Date/Time Associated Diagnosis Comments CULTURE URINE Routine 02/27/2024 4:48 PM EST Contamination of urine culture POC URINE NON-AUTO W/O MICRO Routine 02/25/2024 9:39 AM EST Lower urinary tract symptoms URINALYSIS MICROSCOPIC ONLY Routine 02/25/2024 9:33 AM EST Lower urinary tract symptoms URINALYSIS MICROSCOPIC ONLY Routine 02/25/2024 9:33 AM EST Lower urinary tract symptoms VAGINITIS PATHOGENS BY PCR Routine 02/25/2024 9:33 AM EST Lower urinary tract symptoms CULTURE URINE Routine 02/25/2024 9:33 AM EST Lower urinary tract symptoms from Last 3 Months Results * Culture urine (02/27/2024 4:48 PM EST) Only the most recent of2 resultswithin the time period is included. Pathologist [facility] Culture, Urine 10,000-49,000 CFU/mL Mixed bacterial morphotypes present suggestive of possible contamination during collection. Suggest appropriate recollection if clinically indicated. 02/28/2024 2:12 PM EST [facility] Urine Urine specimen obtained by clean catch procedure / Unknown Non-blood Collection / Unknown 02/27/2024 4:48 PM EST 02/27/2024 4:48 PM EST Esther Orellana NP LAB MICROBIOLOGY - G ENERAL ORDERABLES [facility] [address] [place] [address], * (ABNORMAL) POC Urine Non-Auto W/O Micro (02/25/2024 9:39 AM EST) Glucose UA POC Negative Negative, Trace mg/dL Leukocytes UA POC 2+(A) Negative Nitrite UA POC Negative Negative Urobilinogen UA POC 0.2 E.U./dL mg/dL Protein UA POC Trace(A) Negative, >=300 mg/dL PH UA POC 6.0 Blood UA POC Trace - Intact(A) Negative, Large Specific Wisner UA POC 1.020 Ketones UA POC Negative Negative, Trace Bilirubin UA POC Negative Negative, Small Appearance UA POC Cloudy Color UA POC Dark Yellow Urine Urine specimen obtained by clean catch procedure / Unknown 02/25/2024 9:39 AM EST [place] NP POINT OF CARE TEST E NTER/EDIT ORDERABLES * Urinalysis microscopic only (02/25/2024 9:33 AM EST) Pathologist [facility] RBC, Urine 2.6 0 - 4 /HPF LAB URINALYSIS - AUTOMATED METHOD 02/25/2024 6:49 PM [facility] WBC, Urine 1.4 0 - 4 /HPF LAB URINALYSIS - AUTOMATED METHOD 02/25/2024 6:49 PM EST [facility] Squamous Epithelial, Urine 29 0 - 60 /LPF LAB URINALYSIS - AUTOMATED METHOD 02/25/2024 6:49 PM EST [facility] Bacteria, Urine Negative Negative /HPF LAB URINALYSIS - AUTOMATED METHOD 02/25/2024 6:49 PM [facility] Hyaline Casts, Urine 0.4 0 - 3 /LPF LAB URINALYSIS - AUTOMATED METHOD 02/25/2024 6:49 PM [facility] Urine Urine specimen obtained by clean catch procedure / Unknown Non-blood Collection / Unknown 02/25/2024 9:33 AM EST 02/25/2024 9:33 AM EST [place] NP LAB URINE ORDERABLES [facility] [address] [place] [address], * Vaginitis pathogens molecular study (02/25/2024 9:33 AM EST) Trichomonas vaginalis Negative Negative 02/26/2024 11:23 AM EST [facility] Gardnerella vaginalis Negative Negative 02/26/2024 11:23 AM EST [facility] Arianan Species Negative Negative 11:23 AM EST [facility] Swab Vaginal structure / Unknown Non-blood Collection / Unknown 02/25/2024 9:33 AM EST 02/26/2024 9:57 AM EST [place] NP LAB MICROBIOLOGY - G ENERAL ORDERABLES [facility] [address] [place] [address], from Last 3 Months Care Teams French Edge Operator Relationship Specialty Start Date End Date Physician, No Pcp PCP - General 02/24/24
== END 2024-05-14 12:52 | disposition home or self-care (01) ==
PROVIDERS: PCP Internal Medicine; Visit Provider Internal Medicine
DX: Z00.00 Encounter for general adult medical examination without abnormal findings (principal); Z78.0 Asymptomatic menopausal state; R93.3 Abnormal findings on diagnostic imaging of other parts of digestive tract

== ENCOUNTER → 2024-05-14 11:50 | Outpatient (BNVA) | payer MEDICARE, OTHER, SELFPAY | PROVIDERS: PCP Internal Medicine; Visit Provider Internal Medicine | DX: Z00.00 Encounter for general adult medical examination without abnormal findings (principal); R93.3 Abnormal findings on diagnostic imaging of other parts of digestive tract; E55.9 Vitamin D deficiency, unspecified; Z78.0 Asymptomatic menopausal state | CPT/HCPCS: 96127; 99397 ==

== ENCOUNTER 2024-06-18 08:26 | Outpatient (REF) | payer MEDICARE, OTHER, SELFPAY ==
--- NOTE | ~2024-06-18 | MM_ITS ---
EXAMINATION: DXA BONE DENSITY AXIAL HISTORY: Estrogen deficiency TECHNIQUE: Xolve Dual energy absorptiometry (DEXA) of the lumbar spine, total left hip, and femoral neck was performed. COMPARISON: Comparison is made with the prior examination dated 06/23/2020. FINDINGS: The bone mineral density of the lumbar spine is 1.017 with a T-score of -1.2, and a Z-score of 1.1. This represents a BMD change of -2.2% compared to the prior exam. This is not statistically significant. The bone mineral density of the left total hip is 0.770 with a T-score of -1.9, and a Z-score of 0.5. This represents BMD change of -13.1% compared to the prior exam. This is statistically significant. The bone mineral density of the left femoral neck is 0.736 with a T-score of -2.2, and a Z-score of 0.3. This represents BMD change of -7.1% compared to the prior exam. FRACTURE RISK: The FRAX index suggests a ten year probability of major osteoporotic fracture of 14.1%, and of hip fracture 4.7%. MM/XR DEXA axial skeleton IMPRESSION: Based on bone mineral density, and according to World Health Organization (WHO) criteria, the diagnosis is consistent with osteopenia. All bone density values are in grams per centimeter squared (g/cm2). Statistically, 68% of repeat scans fall within 1 SD (+/- 0.010 g/cm2 for AP spine L1-L4) and 1 SD (+/- 0.012 g/cm2 for femur total) FRAX is a trademark of the [employer]'s [place] for Metabolic Bone Disease, a World Health Organization (WHO) Collaborating Center. Electronically signed by: Ba Powers MD 06/21/2024 07:08 AM [facility]
--- OUTSIDE RECORDS SUMMARY | 2024-06-18 08:50 | XMS_ITS | Clinical Summary ---
Author Organization [address] [place] [address] Address [facility] [place] [address] Phone Care Team Providers Care Care Coordinator Name Role Phone Physician, No Pcp Primary Care Provider Unavaila ble Allergies Active Allergy Reactions Criticality Noted Date Comments Penicillins 02/25/2024 Social History Tobacco Use Types Packs/Day Years Used Date Smoking Tobacco: Never Assessed Comments Unknown Sex and Gender Information Value Date Recorded Sex Assigned at Not on file Legal Sex Female 8:54 PM EST Gender Identity Not on file Sexual Orientation Not on file Obstetrics History Last Filed [...] Adult catch-up series) 08/18/1999 07/21/1999 Pneumococcal Vaccine: 50+ Years (2 of 2 - PPSV23) 02/06/2018 02/06/2017 DTaP,Tdap,and Td Vaccines (3 - [...] patient's age to complete this topic Meningococcal B Vacine Aged Out No lo nger eligible based on patient's age to complete this topic RSV Immunization Patients Under 20 months Aged Out No longer eligible based on patient's age to complete this topic Varicella Vaccines Aged Out No longer eligible based on patient's age to complete this topic Insurance MEDICARE [facility] Care Teams Care Coordinator Relationship Specialty Start Date End Date Physician, No Pcp PCP - General 02/24/24
== END 2024-06-18 08:27 | disposition home or self-care (01) ==
LOC: HO.MAMMO 08:26
PROVIDERS: PCP Internal Medicine; Visit Provider Internal Medicine
DX: Z13.820 Encounter for screening for osteoporosis (principal); Z78.0 Asymptomatic menopausal state
CPT/HCPCS: 77080

== ENCOUNTER → 2024-06-18 08:45 | Outpatient (BNV) | payer MEDICARE, OTHER, SELFPAY | PROVIDERS: PCP Internal Medicine; Visit Provider Radiology Diagnostic Radiology | DX: E28.39 Other primary ovarian failure (principal) | CPT/HCPCS: 77080 ==

== ENCOUNTER 2024-12-11 13:25 | Outpatient (AMB) | payer MEDICARE, OTHER, SELFPAY ==
--- NOTE | 2024-12-11 13:37 | MHC.PC.OV ---
Vital Signs 12/11/24 13:39 Height 5 ft 2 in Weight 110 lb BMI 20.1 BP 136/82 Blood Pressure Location Lt brachial Position Sitting Respiration 18 Pulse 85 Pulse Source Pulse Oximeter Temp 98.1 F Temp Source Oral Pulse Oximetry (%) 97 Oxygen Delivery Method Room Air Intake Visit Reasons: Pre op L hip surgery on 12/17/24 Allergies penicillin V Allergy (Intermediate, Verified 12/11/24 13:44) Hives Penicillins Allergy (Intermediate, Verified 12/11/24 13:44) Hives Medication List - Last Reconciled 12/11/24 by Josette Falk MD cholecalciferol (vitamin D3) 25 mcg PO DAILY estradiol 0.01%(0.1mg/gram) (Estrace) 1 g vaginal 2XW scopolamine base 1 patch transdermal Q3D PRN valacyclovir (Valtrex) 2,000 mg PO Q12H PRN vitamins A,C,Z-qcdr-vrdllz (Ocuvite Preservision) PO Tobacco use date assessed: 12/11/24 Fall risk assessment: No Falls in past year Last assessed Fall Risk: 12/11/24 Dental Screening Dental Screen Date: 12/11/24 Did you have a dental visit in the last 12 months?: Yes Did you have a dental problem in the last 6 months where you did not have access to dental care?: No Was dental information given to patient?: Patient has dentist HPI Pre op L hip surgery on 12/17/24 HPI Details Patient presents for a preop for left hip surgery. She denies chest pain shortness or breath GI or complaints. [facility] Medical History (Updated 12/11/24 @ 19:14 by Josette Falk MD) Osteoarthritis of left hip Annual physical exam Cough Abnormal colonoscopy Mammogram normal Right hip pain Hip pain, left Osteopenia Sciatica GERD (gastroesophageal reflux disease) Surgical History H/O colonoscopy S/P total hip arthroplasty Family History Father Type 2 diabetes mellitus Mother Hypertension Maternal Grandmother Bone cancer Social History Housing: House Alcohol intake: current Alcohol intake frequency: a few times a week Patient Tobacco Use Status: Former Tobacco user e-Cigarette/Vaping Use: Never Used service: No Current occupational status: retired Cognitive needs: No Hearing needs: No Vision needs: Yes Questionnaire Thrive Questionnaire Date Thrive assessed: 05/07/24 I am a: Patient What is your living situation today?: I have a steady place to live Within the past 12 months, did the food you bought not last and you didn't have the money to get more?: Never true Within the past 12 months, did you worry whether your food would run out before you got money to buy more?: Never true Do you have trouble paying for medicines?: No Do you have trouble getting transportation to medical appointments?: No Do you have trouble paying your heating and electricity bill?: No Do you have trouble taking care of your child, family member or friend?: No Do you have trouble with day-to-day activities such as bathing, preparing meals, shopping, managing finances, etc.?: No Are you currently unemployed and looking for a job?: No Are you interested in more education?: No Please select the resources that you would like help with: None Currently or been in a relationship where the following occur: No concerns reported THRIVE Score: 0 AUDIT C Alcohol Use Questionnaire (AUDIT-C) 1. How often do you have a drink containing alcohol?: Monthly or less 2. How many drinks containing alcohol do you have on a typical day when you are drinking?: 1 or 2 3. How often do you have six or more drinks on one occasion?: Never Total Score: 1 APARNA-7 AMB Questionnaire APARNA-7 Date APARNA - 7 assessed: 12/11/24 Feeling nervous, anxious, or on edge: 0 = Not at all Not being able to stop or control worryin = Not at all Worrying too much about different things: 0 = Not at all Trouble relaxin = Not at all Being so restless that it is hard to sit still: 0 = Not at all Becoming easily annoyed or irritable: 0 = Not at all Feeling afraid as if something awful might happen: 0 = Not at all Total APARNA-7 score (0-4 normal; 5-9 mild; 10-14 moderate; 15-21 severe): 0 Source: Developed by Alize Jimenez. Bull, Faizan Mathews and colleagues, with an educational amanda from [employer]. APARNA-7 Assessment Billing APARNA-7 Assessment Tool: APARNA-7 Assessment 64595 Review of Systems Const All systems reviewed & are unremarkable except as noted in HPI and below Eyes Reports no additional complaints ENT Reports no additional complaints Card Reports no additional complaints Resp Reports no additional complaints GI Reports no additional complaints Reports no additional complaints Physical exam (Primary Care) Vital Signs: Last Vital Signs Temp 98.1 F 12/11/24 13:39 Pulse 85 12/11/24 13:39 Resp 18 12/11/24 13:39 BP 136/82 12/11/24 13:39 Pulse Ox 97 12/11/24 13:39 Oxygen Delivery Method Room Air 12/11/24 13:39 BMI result Body Mass Index 20.1 Tobacco/Smoking Status: Tobacco use Status Tobacco use date assessed 12/11/24 12/11/24 13:46 Patient Tobacco Use Status Former Tobacco user 12/11/24 13:37 e-Cigarette/Vaping Use Never Used 12/11/24 13:37 Thrive Assessment: Date of Thrive Assessment Date Thrive assessed 05/07/24 12/11/24 13:37 Currently or been in a relationship where the following occur: No concerns reported Const General: no acute distress HENMT Head: Yes normal to inspection Face and sinus: Yes normal facial exam Mouth: Normal oral and palatal mucosa present Teeth and gingiva: dentition normal Eyes General: appearance normal, both eyes and all related structures Neck Neck: Yes no lymphadenopathy and Yes supple Resp Effort & Inspection: normal respiratory effort Auscultation: clear to auscultation bilaterally Cardio Rhythm: regular rhythm Heart sounds: S1 normal heart sound present and S2 normal heart sound present GI Inspection: Yes normal to inspection Palpation (GI): Soft to palpation Percussion: Yes normal to percussion Auscultation: normal bowel sounds Coding Level of Care Code Est Pt Level 3 (02417) Diagnoses Osteoarthritis of left hip M16.12 Additional Codes APARNA-7 Assessment Billing - APARNA-7 Assessment Tool: APARNA-7 Assessment 14677 ([id number]) Assessment & Plan Assessment & Plan (1) Osteoarthritis of left hip: Code(s): M16.12 - Unilateral primary osteoarthritis, left hip Category: Medical Plan: EKG showed normal sinus rhythm no ST-T changes. Patient is medically cleared for left hip arthroplasty surgery. Orders: Orders AMB EKG-In Office Today Z00.00 - Encounter for general adult medical examination without abnormal findings, Z01.818 - Encounter for other preprocedural examination UA w Microscopic Today Z00.00 - Encounter for general adult medical examination without abnormal findings Urine Culture Today Z00.00 - Encounter for general adult medical examination without abnormal findings Medications: Changed From valacyclovir (Valtrex) 2,000 mg (2 x 1 gram) PO Q12H 4 tabs 4RF To valacyclovir (Valtrex) 2,000 mg PO Q12H PRN
[2024-12-11 13:39] VITALS: BP 136/82; PULSE 85; RESP 18; TEMP 36.7; O2SAT 97; BMI 20.1
--- OUTSIDE RECORDS SUMMARY | 2024-12-11 14:17 | XMS_ITS | Clinical Summary ---
Author Organization [address] [place] [address] Address [facility] [place] [address] Phone Care Team Providers Care Web Press Roll Tender Name Role Phone Physician, No Pcp Primary Care Provider Unavaila ble Allergies Active Allergy Reactions Criticality Noted Date Comments Penicillins 02/25/2024 Medications No known medications Social History Tobacco Use Types Packs/Day Years Used Date Smoking Tobacco: Never Assessed Comments Unknown Sex and Gender Information Value Date Recorded Sex Assigned at Not on file Legal Sex Female 8:54 PM EST Gender Identity Not on file Sexual Orientation Not on file Obstetrics History Last Filed Vital Signs Vital Sign Reading Time Taken Comments Blood Pressure 121/81 08/22/2024 11:33 AM EDT Pulse 76 08/22/2024 11:33 AM EDT Temperature 36.1 C (97 F) 08/22/2024 11:33 AM EDT Respiratory Rate - - Oxygen Saturation 98% 08/22/2024 11:33 AM EDT Inhaled Oxygen Concentration - - Weight - - Height - - Body Mass Index - - Plan of Treatment Health Maintenance Due Date Last Done Comments IPV Vaccines (2 of 3 - Adult catch-up series) 08/18/1999 07/21/1999 Pneumococcal Vaccine: 50+ Years (2 of 2 - PPSV23) 02/06/2018 02/06/2017 DTaP,Tdap,and Td Vaccines (3 - Td or Tdap) 09/17/2018 09/17/2008, 07/21/1999 RSV Immunization Adult Patients (1 - 1-dose 75+ series) 09/02/2019 Falls Risk Assessment 05/12/2023 Medicare Annual Wellness Visit 05/12/2023 Osteoporosis Screening (Bone Density Screening) 05/12/2023 Social Influencers of Health Screening 05/12/2023 Depression Screening 04/17/2024 COVID-19 Vaccine ( season) 2024 03/06/2024, 03/22/2023, 08/19/2022, Additional history exists Influenza Vaccine (#1) 2024 , 02/11/2023, 01/19/2022, Additional history exists Hepatitis A Vaccines Aged [...] age to complete this topic Meningococcal B Vaccine Aged Out No l onger eligible based on patient's age to complete this topic RSV Immunization Patients Under 20 months Aged Out No longer eligible based on patient's age to complete this topic Varicella Vaccines Aged Out No longer eligible based on patient's age to complete this topic Insurance MEDICARE [facility] Care Teams Web Press Roll Tender Relationship Specialty Start Date End Date Physician, No Pcp PCP - General 02/24/24
== END 2024-12-11 16:03 | disposition home or self-care (01) ==
LOC: HO.HMCC 13:26
PROVIDERS: PCP Internal Medicine; Visit Provider Internal Medicine
DX: M16.12 Unilateral primary osteoarthritis, left hip (principal)

== ENCOUNTER 2024-12-11 13:25 | Outpatient (REF) | payer MEDICARE, OTHER, SELFPAY ==
[2024-12-11 19:35] LABS: Appearance Urine Clear; Glucose Urine UA Negative (Negative); PH 6.5 (5.0-9.0); Specific Gravity - Urine 1.010 (1.005-1.025)
== END 2024-12-11 13:26 | disposition home or self-care (01) ==
LOC: HO.HMGCLDS 13:25
PROVIDERS: PCP Internal Medicine; Visit Provider Internal Medicine
DX: Z00.00 Encounter for general adult medical examination without abnormal findings (principal); Z79.899 Other long term (current) drug therapy; M16.12 Unilateral primary osteoarthritis, left hip
CPT/HCPCS: 81001; 87086; 96127; 99212

== ENCOUNTER → 2025-01-23 23:59 | Outpatient (BNV) | payer MEDICARE, OTHER, SELFPAY | PROVIDERS: PCP Internal Medicine; Visit Provider Internal Medicine | DX: M16.12 Unilateral primary osteoarthritis, left hip (principal); Z47.1 Aftercare following joint replacement surgery; Z96.642 Presence of left artificial hip joint | CPT/HCPCS: G0180 ==